=== PATIENT | male | born 1960 | race Caucasian/White ===

== ENCOUNTER 2019-02-10 20:00 | Emergency (ER) | payer OTHER ==
[2019-02-10] MEDS ORDERED: cefTRIAXone\\ROCEPHIN 1 GM VIAL ONE (20:44)
[2019-02-10] MEDS ORDERED: Lidocaine 1% 20 ML MDV ONE (20:44)
== END 2019-02-10 21:19 | disposition home or self-care (01) ==
LOC: MADERS 20:00 → EDBD 20:00 → MADERS 21:19
DX: T24.021A Burn of unspecified degree of right knee, initial encounter (principal); L03.115 Cellulitis of right lower limb; I10 Essential (primary) hypertension; Z79.899 Other long term (current) drug therapy; X08.8XXA Exposure to other specified smoke, fire and flames, initial encounter
CPT/HCPCS: 96372; 99283; J0696; J2001